=== PATIENT | male | born 1960 | race Caucasian/White ===

== ENCOUNTER 2016-07-09 05:51 | Day surgery (SDC) | payer BC ==
[~2016-07-09] VITALS: Ht 180.3 cm; Wt 87.3 kg
[2016-07-09] VITALS (10 sets, daily range): BP systolic 112–143; BP diastolic 69–88; PULSE 50–114; TEMP 97.4–98.1
[~2016-07-09 05:51] MED LIST: CEPHALEXIN500 M1 PO; GENTAMICIN EYE D5 ML OS; LORTAB 5/500 501 TAB PO; MOTRIN 400400 MG/TAB PO; NAPROSYN500 MG PO; NO HOME MEDICATIONS; NORCO 325 MG-51 TAB PO; TYLENOL 500MG500 MG PO
[2016-07-09] MEDS ORDERED: NORCO 325 MG-7.1 TAB PO (11:08)
== END 2016-07-09 14:25 | disposition home or self-care (01) ==
LOC: SDCO 05:51
DX: K40.90 Unilateral inguinal hernia, without obstruction or gangrene, not specified as recurrent (principal); Z80.0 Family history of malignant neoplasm of digestive organs; Z86.010 Personal history of colon polyps; D12.5 Benign neoplasm of sigmoid colon
CPT/HCPCS: A4315; C1781; E0710; J0330; J1100; J1170; J1885; J2250; J2270; J2405; J2704; J2710; J3010; J7120

== ENCOUNTER → 2017-06-20 | Outpatient (REF) ==
[~2017-06-20] MED LIST changes: +NORCO 325 MG-7.1 TAB PO
== END ==
LOC: ZLAB.WCH 15:35
DX: Z01.89 Encounter for other specified special examinations (principal)
CPT/HCPCS: G0103

== ENCOUNTER → 2018-04-04 | Outpatient (REF) ==
[2018-04-04 17:11] LABS: THYROID STIMULATING HORMONE 3.13 uIU/mL (0.465-4.680)
[2018-04-04 17:14] LABS: PSA-TOTAL 4.63 ng/mL (0-4)
== END ==
LOC: ZLAB.WCH 16:09
PROVIDERS: Internal Medicine
DX: Z01.89 Encounter for other specified special examinations (principal)
CPT/HCPCS: G0103

== ENCOUNTER → 2019-07-25 | Outpatient (CLI) | payer BC | LOC: COL.RAD 09:26 | DX: C61 Malignant neoplasm of prostate (principal) | CPT/HCPCS: A9503; Q9967 ==

== ENCOUNTER → 2019-08-03 | Outpatient (CLI) | payer BC ==
--- NOTE | 2019-08-01 14:10 | NUR ---
CALLED DR ORELLANA OFFICE AND LEFT A SECOND MSG FOR THEM TO SEND ORDER AND HP ON THIS PT
[2019-08-03] VITALS (14 sets, daily range): BP systolic 114–143; BP diastolic 75–91; PULSE 54–67
[~2019-08-03] VITALS: Ht 180.3 cm; Wt 86.1 kg
[~2019-08-03] MED LIST changes: +FLOMAX 0.40.4 MG/CAP PO; +LUPRON DEPOT45 MG IM
--- NOTE | 2019-08-03 13:45 | NUR ---
Pt to ct per wheelchair. Pt placed in prone position on table. Monitors applied.
--- NOTE | 2019-08-03 14:26 | NUR ---
Specimens obtained by Dr Villar and placed in formalin. Specimen labeled.
== END ==
LOC: COL.RAD 12:04
DX: C61 Malignant neoplasm of prostate (principal); C79.51 Secondary malignant neoplasm of bone
CPT/HCPCS: J2250; J3010

== ENCOUNTER → 2020-01-15 | Outpatient (CLI) | payer BC | LOC: COL.RAD 08:30 | DX: C61 Malignant neoplasm of prostate (principal); C79.51 Secondary malignant neoplasm of bone; R59.0 Localized enlarged lymph nodes | CPT/HCPCS: A9503; Q9967 ==

== ENCOUNTER → 2020-07-22 | Outpatient (CLI) | payer BC | LOC: COL.RAD 09:16 | DX: C61 Malignant neoplasm of prostate (principal); M89.9 Disorder of bone, unspecified; I77.810 Thoracic aortic ectasia | CPT/HCPCS: Q9967 ==

== ENCOUNTER → 2021-01-06 | Outpatient (CLI) | payer BC ==
[~2021-01-06] MED LIST changes: +KLONOPIN 1MG1 MG PO; +ULTRAM 50MG TAB50 MG PO
== END ==
LOC: COL.RAD 07:03
DX: I77.810 Thoracic aortic ectasia (principal); R39.12 Poor urinary stream; R33.8 Other retention of urine; R91.8 Other nonspecific abnormal finding of lung field; C81.00 Nodular lymphocyte predominant Hodgkin lymphoma, unspecified site
CPT/HCPCS: Q9967

== ENCOUNTER → 2021-01-19 | Outpatient (CLI) | payer BC ==
[~2021-01-19] VITALS: Ht 180.3 cm; Wt 66.4 kg
[2021-01-19] VITALS (14 sets, daily range): BP systolic 100–128; BP diastolic 64–90; PULSE 58–76; TEMP 98.5
--- NOTE | 2021-01-19 13:16 | NUR ---
1316 FENTANYL 50 MCG GIVEB IV
== END ==
LOC: COL.RAD 11:46
DX: C61 Malignant neoplasm of prostate (principal)
CPT/HCPCS: 32109

== ENCOUNTER → 2021-05-06 | Outpatient (CLI) | payer BC | LOC: COL.RAD 08:09 | DX: C61 Malignant neoplasm of prostate (principal); R91.1 Solitary pulmonary nodule | CPT/HCPCS: Q9967 ==

== ENCOUNTER → 2021-07-13 | Outpatient (CLI) | payer BC | LOC: COL.RAD 08:09 | DX: C61 Malignant neoplasm of prostate (principal) | CPT/HCPCS: Q9967 ==